=== PATIENT | female | born 1980 | race Caucasian/White ===

== ENCOUNTER 2016-09-26 09:19 | Emergency (ER) | payer SELFPAY ==
[~2016-09-26] VITALS: Ht 175.3 cm; Wt 79.0 kg
[~2016-09-26 09:19] MED LIST: BUPR100T4 PO; FLUO-124 PO
[2016-09-26 09:49] VITALS: BP 106/69
== END 2016-09-26 15:17 | disposition left against medical advice (07) ==
LOC: ER 15:03
DX: M54.2 Cervicalgia (principal); M54.9 Dorsalgia, unspecified; F32.9 Major depressive disorder, single episode, unspecified; F17.200 Nicotine dependence, unspecified, uncomplicated